=== PATIENT | male | born 1950 | race Caucasian/White ===

== ENCOUNTER 2021-06-29 06:25 | Day surgery (SDC) | payer MEDICARE, OTHER ==
[~2021-06-29] VITALS: Ht 182.9 cm; Wt 86.4 kg
[~2021-06-29 06:25] MED LIST: CRESTOR20 MG PO; FLOMAX0.4 MG PO; HYDROCHLOROTHIA25 MG PO
[2021-06-29] MEDS ORDERED: ACETAMINOPHEN500 MG PO (08:47)
[2021-06-29] MEDS ORDERED: OXYCODON-ACETA1 EAC2 PO (08:47)
[2021-06-29] MEDS ORDERED: IBUPROFEN600 MG PO (08:47)
--- NOTE | 2021-06-29 08:48 | NUR ---
06/29/21 0848 Sheets,Alexandra 0832 PT ARRIVED TO PACU ON 6L VIA MASK, VSS. JAW THUST USED TO MAINTAIN AIRWAY. PT NONAROUSABLE. 0846 PT WOKE TO TACTILE STIMULI AND ORAL AIRWAY REMOVED. PT REORIENTED TO PACU. 0847 O2 MASK REMOVED. PT DENIES PAIN AND NAUSEA.
--- NOTE | 2021-06-29 09:13 | NUR ---
PT BACK TO ROOM FROM PACU AWAKE AND ALERT DENIES PAIN AND NAUSEA, PT EATING CRACKERS AND DRINKING WATER, REPORTS FEELING DIZZY AND LIGHT HEADED, STATED BP IS LOWER THAN HIS NORMAL. IV FLUIDS WILL CONTINUE TO INFUSE.
--- NOTE | 2021-06-29 10:12 | NUR ---
0945-PATIENT UP TO BATHROOM WITH 1 RN ASSIST AND INDUSTRIAL PHOTOGRAPHER. GAIT UNSTEADY AND TOLERATED WELL. PATIENT WAS UNALBLE TO URINATE AT THIS TIME.
--- NOTE | 2021-06-29 10:15 | NUR ---
PATIENT UP TO BATHROOM. GAIT STEADY AND TOLERATED WELL. PATIENT VOIDED 400ML. PATIENT BACK TO ROOM AND IS READY TO GO HOME.
--- NOTE | 2021-06-29 10:15 | NUR ---
1005-PATIENT IS AWAKE WATCHING TV IN BED. RESP EVEN AND UNLABORED. RATES PAIN 3/10. DENIES NASUEA. LIGHTHEADEDNESS HAS RESOLVED. DRESSING HAS A SMALL AMOUNT OF SHADOWING. EDUCATION GIVEN ON SPLINTING WITH A PILLOW WHEN COUGHING. PROVIDED PAITENT WITH PUDDING. AT BEDSIDE. CALL LIGHT WITHIN REACH.
--- NOTE | 2021-06-29 10:21 | NUR ---
PT ALERT, ORIENTED AND SUPPORTED BY HIS TANYA. ALL QUESTIONS ASKED ANSWERED. DR WAYNE IN, GAVE BLESSING AND WILL FOLLOW
--- NOTE | 2021-06-29 10:53 | NUR ---
1030-DISCHARGE INSTRUCTIONS GIVEN TO PATINET AND . ALL QUESTIONS ANSWERED. PATIENT AMBULATES TO WHEELCHAIR. PROVIDED RIDE TO FRONT OF HOSPITAL WHERE WAS WAITING WITH THE CAR.
--- NOTE | 2021-06-29 13:40 | OR ---
[facility] [address], [place] [address] Signed DATE OF OPERATION: 06/29/2021 SURGEON: Rosa Wayne MD PREOPERATIVE DIAGNOSIS: Umbilical hernia. POSTOPERATIVE DIAGNOSIS: Incarcerated umbilical hernia (properitoneal fat) fascial defect 1.5 cm. PROCEDURES: 1. Repair of incarcerated umbilical hernia. 2. Implantation of Prolene mesh (properitoneal space). ANESTHESIA: General LMA; Gina Moulton CRNA and local 20 mL of 0.25% Marcaine with epinephrine. INDICATION: This 71-year-old white man is a patient of Dr. Jerez, formally Dr. Lenin Mackay. He has been found to have a small mass in the region of the umbilicus which on clinical examination is consistent with umbilical hernia. He notes that it does decrease in size upon lying flat. He has problems of bladder outlet obstructive type symptoms that are not well controlled with Flomax. He has mild pain and the area generally reduces on examination. He is admitted to undergo repair of the hernia at this time. He understands the risks of bleeding, infection, need for implantation of mesh, recurrence, and other unforeseen complications. Understanding this, he wished to proceed. FINDINGS: An incarcerated umbilical hernia was noted. The fascial defect was relatively small at 1.5 cm; the herniated viscus was properitoneal fat, it was fully reduced. Implantation of Prolene mesh in the properitoneal space was undertaken as well as transverse approximation of the fascia. There were no complications. PROCEDURE: The patient was brought to the operating room, given a general LMA type anesthetic. Preoperative antibiotic Ancef was given. Sequential compression device stockings were used and heparin subcutaneously administered. The mid abdomen was clipped and prepared with a chlorhexidine solution and draped sterilely. A curvilinear incision was made in the left lateral aspect of the umbilical fold. The nodule like hernia was not Electronically Signed By: ROSA WAYNE MD 06/29/21 1340 PATIENT NAME: NAIF TRAORE OPERATIVE REPORT DATE OF : 54 REPORT #: [id number] PHYSICIAN: ROSA WANYE MD PCP: EZ JEREZ MD REPORT IS CONFIDENTIAL AND NOT TO BE RELEASED WITHOUT AUTHORIZATION [facility] [address], [place] [address] Signed reducible. Dissection was carried through the dermis with sharp and electrocautery dissection and the nonreducing hernia freed from the overlying dermis of the umbilical skin fully. Circumferential definition of the fascial edges was undertaken and ultimately the hernia sac incised. Herniated viscus appeared to be fatty tissue. This was ultimately reduced into the properitoneal space. Circumferential dissection of the properitoneal space with blunt dissection and the end of a DeBakey forcep was undertaken. Consideration was made for primary closure without mesh. However, given its size of 1.5 cm and so forth, it was deemed advisable to at least bolster the repair with the mesh. On that basis, a circular piece of mesh approximately 4 cm in diameter was into place with 0 Prolene sutures into the properitoneal space. The fascia was then transversely reapproximated with interrupted 0 Prolene in a vertical mattress configuration. 20 mL of 0.25% Marcaine with epinephrine injected locally. Subcutaneous tissue was reapproximated with interrupted 0 Vicryl suture after irrigation. The skin was closed with running subcuticular 3-0 Vicryl. Steri-Strips were applied. The patient tolerated the procedure well, was extubated without problem, taken to recovery room in good condition. Sponge, needle, and instrument counts were reported as correct x3. MD DYLON Gibbons/SULEMAL /[id number] cc: Ez Jerez MD Copies: EZ JEREZ MD ~ Electronically Signed By: ROSA WAYNE MD 06/29/21 1340 PATIENT NAME: NAIF TRAORE OPERATIVE REPORT DATE OF : 54 REPORT #: [id number] PHYSICIAN: ROSA WAYNE MD PCP: EZ JEREZ MD REPORT IS CONFIDENTIAL AND NOT TO BE RELEASED WITHOUT AUTHORIZATION
--- NOTE | 2021-06-29 16:24 | EKG ---
[facility] [address] [facility] [place], [place] [address] Signed Normal sinus rhythm Nonspecific T wave abnormality Abnormal ECG No previous ECGs available Confirmed by JEFERSON ROBERTS DO ([id number]) on 06/29/2021 4:23:48 PM Electronically Signed By: JEFERSON ROBERTS DO 06/29/21 1624 PATIENT NAME: LEÓNNAIF Fatemeh Electrocardiogram DATE OF : 54 PHYSICIAN: JEFERSON ROBERTS DO REPORT #: [id number] REPORT IS CONFIDENTIAL AND NOT TO BE RELEASED WITHOUT AUTHORIZATION
== END 2021-06-29 10:30 | disposition home or self-care (01) ==
LOC: DS 06:25
PROVIDERS: ATTEND Surgery
PROC: 0WUF0JZ Supplement Abdominal Wall with Synthetic Substitute, Open Approach (ICD-10-PCS; principal; 2021-06-29 06:45)
DX: K42.0 Umbilical hernia with obstruction, without gangrene (principal); I10 Essential (primary) hypertension; N40.1 Benign prostatic hyperplasia with lower urinary tract symptoms; N13.8 Other obstructive and reflux uropathy; M66.869 Spontaneous rupture of other tendons, unspecified lower leg; Z98.890 Other specified postprocedural states
CPT/HCPCS: 00750; 93005; 93010; C1781; J0690; J1100; J1644; J1885; J2001; J2250; J2405; J2704; J7121